=== PATIENT | male | born 1975 | race Caucasian/White ===

== ENCOUNTER → 2023-09-09 06:25 | Day surgery (SDC) | payer OTHER, SELFPAY ==
[2023-09-09 07:24] LABS: Glucose - Point of Care 103 mg/dl (70-99)
== END ==
LOC: GI 06:25
PROVIDERS: ATTENDING PHYSICIAN Surgery
DX: Z12.11 Encounter for screening for malignant neoplasm of colon (principal); C18.7 Malignant neoplasm of sigmoid colon; K62.1 Rectal polyp; D12.3 Benign neoplasm of transverse colon; D12.4 Benign neoplasm of descending colon; D12.5 Benign neoplasm of sigmoid colon; D12.7 Benign neoplasm of rectosigmoid junction; R19.5 Other fecal abnormalities
CPT/HCPCS: 45385; 88305; 82962; 88342

== ENCOUNTER 2024-09-22 06:25 | Day surgery (SDC) | payer OTHER, SELFPAY ==
[2024-09-22 09:31] LABS: Glucose - Point of Care 101 mg/dl (70-99)
== END 2024-09-22 11:52 | disposition home or self-care (01) ==
LOC: GI 06:25
PROVIDERS: ATTENDING PHYSICIAN Surgery
DX: Z12.11 Encounter for screening for malignant neoplasm of colon (principal); D12.3 Benign neoplasm of transverse colon; D12.4 Benign neoplasm of descending colon; D12.5 Benign neoplasm of sigmoid colon; K63.5 Polyp of colon; K62.1 Rectal polyp; Z86.0100 Personal history of colon polyps, unspecified
CPT/HCPCS: 45385; 45380; 88305; 82962

== ENCOUNTER 2025-03-05 09:30 | Emergency (ER) | payer OTHER, SELFPAY ==
[2025-03-05 09:33] VITALS: BP 156/97
[2025-03-05 09:41] LABS: Glucose - Point of Care 96 mg/dl (70-99)
[2025-03-05 10:18] VITALS: BP 126/83
[2025-03-05] MEDS: NSS 500 IV (10:38)
[2025-03-05 10:47] LABS: Hematocrit 42.4 % (39.0-52.0); Hemoglobin 14.1 g/dL (13.0-18.0); Mean Corp Hgb Conc. 33.3 g/dL (33.0-37.0); Mean Corpuscular Volume 81.9 fL (80.0-94.0); Nucleated Red Blood Cells % 0 % (-); Platelet Count 226 10^3/uL (130-400); Red Cell Dist. Width 14.5 % (11.5-14.5)
[2025-03-05 11:00] VITALS: BP 127/81
[2025-03-05 11:02] LABS: Blood Urea Nitrogen 19 mg/dl (9-20); Calcium 9.5 mg/dl (8.4-10.2); Carbon Dioxide 24 mmol/L (22-30); Chloride 104 mmol/L (98-107); Glucose 87 mg/dl (70-99); Potassium 4.7 mmol/L (3.5-5.1); Sodium 137 mmol/L (135-145); eGFR > 60.00
--- NOTE | 2025-03-05 11:04 | ED.GENMED ---
History of Present Illness
General
Chief Complaint: Visual Problem
Source: patient
Exam Limitations: none
Time Seen by Provider: 03/05/25 10:18
History of Present Illness
History of Present Illness:
Patient started Ozempic injections 3 weeks ago. He takes them on Saturdays. He has had a few days of some dizziness and balance off. Some funny visual changes with lines in both eyes. No double vision no blurry vision. No unusual headaches no
other neurologic symptoms. He did see the physician last week for some left eye issues but this was localized to the left eye and resolved.
Past History
Past History
ED Past Medical History: GERD, HTN, NIDDM and Other ('Gallbladder attack', anxiety disorder)
ED Past Surgical History: None
Social History
Tobacco: Former smoker
Alcohol: Occasional
Drug: None
Personal:
Living: with family
Employment: Employed
Family History
Family History: Other (Noncontributory)
Review of Systems
Review of Systems
All Other Systems: Not applicable
Constitutional: Denies fever
Neurological: Denies headache, weakness or numbness
Phy Exam
Physical Exam
Physical Exam:
GENERAL: Alert and oriented in no apparent distress
EYE: Orbits normal. Extraocular muscles intact. Discharge
NECK: Supple, no carotid bruit
ENT: Pharynx without erythema
CARDIAC: Regular rate and rhythm without any obvious murmurs.
LUNGS: Clear breath sounds,normal
ABDOMEN: Soft, without focal tenderness or distention
NEUROLOGICAL: Alert and oriented , cranial nerves II through XII intact. Speech normal. Fryljg-wp-rnns normal. Gbhn-xv-hlfr normal.
SKIN: Warm and dry, no rash or lesion, no discoloration, skin intact.
MUSCULOSKELETAL: No edema,no deformity.Good color
PSYCH: Normal and appropriate interaction.
Course
Orders/Labs/Results
Orders:
Orders
03/05/25 10:31
CT Head W/o Iv Contrast Urgent
Comment:
Reason For Exam: Dizzy.blurry vision
IV Insert/Care/Rem.- Treatment PRN
0.9% Sodium Chloride 500 ml [Nss] 500 ml IV BOLUS
03/05/25 10:32
CT Neck Angio W/wo Iv Contrast Urgent
Comment:
Reason For Exam: dizzy/visual problem
03/05/25 10:36
Basic Metabolic Panel Urgent
Complete Blood Count/With Diff Urgent
Erythrocyte Sed Rate Urgent
Abnormal Lab Results
03/05/25
10:36
Absolute Monos (auto) 0.7 H 10^3/uL
(0.1-0.6)
Monocytes % 9.7 H %
(1.7-9.3)
03/05/25 10:36
03/05/25 10:36
Vital Signs
Initial and Last Documented VS:
Initial Vital Signs
Temp Pulse Resp BP Pulse Ox
97.7 F 79 20 156/97 98
03/05/25 09:33 03/05/25 09:33 03/05/25 09:33 03/05/25 09:33 03/05/25 09:33
Last Documented Vital Signs
Temp Pulse Resp BP Pulse Ox
97.7 F 72 20 131/86 98
03/05/25 09:33 03/05/25 13:00 03/05/25 13:00 03/05/25 13:00 03/05/25 13:00
MDM/Problems Addressed
Differential Diagnosis Includes:
Low suspicion for an acute neurologic issue. Will get a plain head CT and check his carotids for completeness. Chronologically this may be his Ozempic as the symptoms all started within the last 3 weeks which is when he started his Ozempic.
*Radiology
Radiology exam reviewed: radiology read reviewed (Negative head CT. Negative CT angio)
*Pulse Oximetry
SaO2: 98
Oxygen Mode of Delivery: Room air
Patient hypoxic: no
*Corrections Identification Technician Interpretation
Rate: normal
Interpretation: normal
Heart Rate: 77
Rhythm: sinus and PVC's
*Critical Care Note
Total Time (30-74mins, 75-104mins- exclusive of procedures): Not Applicable
Update Note
Update Note:
I suspect this is all secondary to his medication. I cannot find another serious etiology. Discharged to follow-up
ED Attending Note
-
Portions of this chart may have been created with voice recognition software.� Occasional wrong word or��sound alike� substitutions may have occurred due to the inherent limitations of voice recognition software.
Discharge Plan
Departure
Patient Disposition: Home (Routine Discharge)
Date of Disposition: 03/05/25
Time of Disposition: 13:47
Patient with high blood pressure during this ER visit?: Yes
Discharge Problem:
Dizziness/blurry vision
Instructions: Dizziness in adults - ED (DC), BLOOD PRESSURE
Prescriptions:
No Action
ibuprofen 800 MG tablet
800 mg PO Q8HPRN PRN (Reason: pain) Qty: 30 0RF
alprazolam 0.25 MG tablet
0.25 mg PO BID PRN (Reason: anxiety)
metaxalone [Skelaxin] 800 MG tablet
800 mg PO HSPRN PRN (Reason: pain)
omeprazole 20 MG tablet,delayed release (DR/EC)
20 mg PO MEALS HS
diphenhydramine HCl [Banophen] 25 MG capsule
25 mg PO .Q4-6HPRN PRN (Reason: itching) Qty: 20 0RF
cyclobenzaprine 10 MG tablet
10 mg PO TIDPRN PRN (Reason: spasm) Qty: 9 0RF
ondansetron 4 MG tablet,disintegrating
4 mg PO TIDPRN PRN (Reason: nausea/vomiting) Qty: 12 0RF
Referrals:
Hair Jay MD [Family Provider, Family Practice] - Follow up in 2-3 days
Stand Alone Forms: Return to Work
Activity Restrictions/Additional Instructions:
I suspect this is your medication causing these issues. I would stop the medication for now
Follow-up closely with your primary physician. Also for completeness to have your vision checked by the eye doctor
Return with increased visual issues increased dizziness headaches vomiting, or any other neurologic symptoms
Interventions
Interventions:
*Risk Screen - Suicide Last Done: 03/05/25 09:33
*General Assessment Last Done: 03/05/25 09:33
*Neglect/Abuse Screening Last Done: 03/05/25 09:33
*ED- Fall Risk Assessment Last Done: 03/05/25 10:12
*ED COVID-19 Vaccine History Last Done: 03/05/25 10:12
ED- Neurological Assessment Last Done: 03/05/25 10:28
ED-EENT Assessment Last Done: 03/05/25 10:30
Discharge Date and Time
Print Language: PERSIAN
[2025-03-05 12:20] VITALS: BP 110/64
[2025-03-05 13:00] VITALS: BP 131/86
== END 2025-03-05 14:16 | disposition home or self-care (01) ==
LOC: EMR 09:30
PROVIDERS: EMERGENCY PHYSICIAN Emergency Medicine; FAMILY PHYSICIAN Family Medicine
DX: R42 Dizziness and giddiness (principal); H53.8 Other visual disturbances; E11.9 Type 2 diabetes mellitus without complications; I10 Essential (primary) hypertension; Z87.891 Personal history of nicotine dependence
CPT/HCPCS: 99284; 70450; 70498; 80048; 82962; 85025; 85652; Q9967

== ENCOUNTER 2025-03-12 17:18 | Emergency (ER) | payer OTHER, SELFPAY ==
[2025-03-12 17:18] VITALS: BMI 40.9
[2025-03-12 17:29] VITALS: BP 138/95
[2025-03-12 17:42] LABS: Hematocrit 41.1 % (39.0-52.0); Hemoglobin 13.5 g/dL (13.0-18.0); Mean Corp Hgb Conc. 32.8 g/dL (33.0-37.0); Mean Corpuscular Volume 82.5 fL (80.0-94.0); Nucleated Red Blood Cells % 0 % (-); Platelet Count 218 10^3/uL (130-400); Red Cell Dist. Width 14.6 % (11.5-14.5)
[2025-03-12 17:58] LABS: ALT (SGPT) 38 U/L (0-50); AST (SGOT) 28 U/L (17-59); Albumin 4.8 g/dl (3.5-5.0); Alkaline Phosphatase 70 U/L (38-126); Blood Urea Nitrogen 18 mg/dl (9-20); Calcium 9.3 mg/dl (8.4-10.2); Carbon Dioxide 30 mmol/L (22-30); Chloride 104 mmol/L (98-107); Glucose 92 mg/dl (70-99); Potassium 4.5 mmol/L (3.5-5.1); Sodium 140 mmol/L (135-145); Total Protein 7.5 g/dl (6.3-8.2); eGFR > 60.00
[2025-03-12 18:09] LABS: Troponin I < 0.012 ng/ml
[2025-03-12 20:14] VITALS: BP 149/97; BP 166/115; BP 181/113; PULSE 72; PULSE 73; PULSE 84
--- NOTE | 2025-03-12 20:15 | ED.GENMED ---
History of Present Illness
General
Chief Complaint: Dizziness
Source: patient
Time Seen by Provider: 03/12/25 19:57
History of Present Illness
History of Present Illness:
This patient is a 49-year-old male who states that he started Ozempic and took it a total of 2-3 times, injected once a week. He has not had it in 2 weeks. He is concerned that his symptoms are related to Ozempic. He repeatedly speculates that
his symptoms are also related to anxiety. He states that for the last 2 to 3 weeks he has been feeling episodes of 'foggy' in his brain and off balance. He denies a sensation of spinning or leaning to one side, dizziness. He was seen by his
primary care doctor and diagnosed with vertigo and given an antihistamine which is just making him sleep. He was also seen in the emergency department and had an extensive work including a Noncon head CT and a CTA of the head and neck which was
unremarkable. He states that he was at work tonight and started to feel overwhelmed with a 'shaky feeling'. He says he started to feel like he was panicking, and 911 was called. He says that he now feels a little shaky and anxious but otherwise
denies complaints. He denies recent dyspnea, numbness, tingling, focal weakness, double vision, change in vision, change in speech, trouble swallowing, abdominal pain, nausea, vomiting, fever, chills. He momentarily had discomfort in the left
upper anterior chest, now fully resolved. He says it was 'nothing in my heart', and lasted a minute or 2 before fully resolving.
Past History
Past History
ED Past Medical History: GERD, HTN, NIDDM and Other ('Gallbladder attack', anxiety disorder, RAMIN, obesity)
ED Past Surgical History: None
Social History
Tobacco: Former smoker
Alcohol: Occasional
Drug: None
Personal:
Living: with family
Employment: Employed
Family History
Family History: Other (Noncontributory)
Phy Exam
Physical Exam
Physical Exam:
GENERAL: Alert , in no apparent distress
EYE: pupils equal and reactive
NECK: Supple, no significant adenopathy.
ENT: o/p clr, mmm.
CARDIAC: Regular rate and rhythm .
LUNGS: Clear breath sounds bilaterally, no acute respiratory distress, no wheezes/rales/rhonchi
ABDOMEN: Soft, without focal tenderness, no r/g, no cvat
NEUROLOGICAL: Alert and oriented, no focal neuro deficits
SKIN: Warm and dry, skin intact.
MUSCULOSKELETAL: No edema, well perfused.
PSYCH: Normal and appropriate interaction.
Course
Orders/Labs/Results
Orders:
Orders
03/12/25 17:31
ECG [Electrocardiogram (*1)] Urgent
Reason for Study: Chest Pain
EKG- Treatment ONCE
03/12/25 17:34
Complete Blood Count/With Diff Urgent
Comprehensive Metabolic Panel Urgent
Troponin I Urgent
03/12/25 20:14
Cardiac Monitoring- Treatment ONCE
Orthostatic VS- Treatment ONCE
0.9% Sodium Chloride 1000 ml [Nss] 1,000 ml IV BOLUS
03/12/25 20:31
Troponin I Urgent
Abnormal Lab Results
03/12/25
17:34
MCHC 32.8 L g/dL
(33.0-37.0)
RDW 14.6 H %
(11.5-14.5)
Absolute Monos (auto) 0.9 H 10^3/uL
(0.1-0.6)
Monocytes % 10.7 H %
(1.7-9.3)
03/12/25 17:34
03/12/25 17:34
Vital Signs
Initial and Last Documented VS:
Initial Vital Signs
Temp Pulse Resp BP Pulse Ox
98.4 F 86 18 138/95 95
03/12/25 17:29 03/12/25 17:29 03/12/25 17:29 03/12/25 17:29 03/12/25 17:29
Last Documented Vital Signs
Temp Pulse Resp BP Pulse Ox
98.4 F 86 18 138/95 95
03/12/25 17:29 03/12/25 17:29 03/12/25 20:22 03/12/25 17:29 03/12/25 20:18
*Pulse Oximetry
SaO2: 95
Oxygen Mode of Delivery: Room air
Update Note
Update Note:
Patient presents to the Emergency Department with ____feeling 'shaky'
Number and Complexity of Problems Addressed at the Encounter
� Chronic conditions affecting care:
� Acute Exacerbation and/or Progression of Chronic Illness:
� Differential Diagnosis includes: But not limited to dehydration, electrolyte disorder, ACS, vertigo, etc. etc. etc.
Amount and/or Complexity of Data to be Reviewed and Analyzed
� I performed an independent evaluation of and my interpretation is:
EKG: Read by me, normal sinus rhythm, LAD, PVCs, no acute ischemia
CT:
Xrays:
Laboratory Studies: Generally unremarkable
Other:
� Review of other/old records reveals: Patient had a Noncon CT and CTA within the last few weeks unremarkable
� Clinical information was obtained by an independent historian: who is bedside
� Prescriptions/Medications Considered but not given:
� Further testing considered but not performed:
Risk of Complications and/or Morbidity or Mortality of Patient Management
� Social determinants of health affecting care:
� Discussion with other providers (PCP, Hospitalists, Consultants, etc):
� Escalation of care including admission/observation vs risk of discharge considered: Patient remains well-appearing and comfortable here, no complaints at this time. Long discussion with patient regarding importance of
follow-up and reasons return to the ER. I do not clinically suspect posterior circulation event given lack of physical findings and history that is not suggestive of. Patient is asymptomatic at this time.
ED Attending Note
-
Portions of this chart may have been created with voice recognition software.� Occasional wrong word or��sound alike� substitutions may have occurred due to the inherent limitations of voice recognition software.
Discharge Plan
Departure
Patient Disposition: Home (Routine Discharge)
Date of Disposition: 03/12/25
Time of Disposition: 22:08
Patient with high blood pressure during this ER visit?: Yes
Condition: Good
Discharge Problem:
Dizziness
Instructions: Dizziness, BLOOD PRESSURE
Prescriptions:
No Action
ibuprofen 800 MG tablet
800 mg PO Q8HPRN PRN (Reason: pain) Qty: 30 0RF
alprazolam 0.25 MG tablet
0.25 mg PO BID PRN (Reason: anxiety)
metaxalone [Skelaxin] 800 MG tablet
800 mg PO HSPRN PRN (Reason: pain)
omeprazole 20 MG tablet,delayed release (DR/EC)
20 mg PO MEALS HS
diphenhydramine HCl [Banophen] 25 MG capsule
25 mg PO .Q4-6HPRN PRN (Reason: itching) Qty: 20 0RF
cyclobenzaprine 10 MG tablet
10 mg PO TIDPRN PRN (Reason: spasm) Qty: 9 0RF
ondansetron 4 MG tablet,disintegrating
4 mg PO TIDPRN PRN (Reason: nausea/vomiting) Qty: 12 0RF
Referrals:
Hair Jay MD [Family Provider, Family Practice] - Follow up in 2-3 days
Stand Alone Forms: Return to Work
Activity Restrictions/Additional Instructions:
IF YOU DEVELOP A SENSE OF SPINNING, SEVERE HEADACHE, NECK PAIN, NAUSEA, VOMITING, NUMBNESS, CHANGE IN SPEECH, CHANGE IN VISION, DOUBLE VISION, PASS OUT, CHEST PAIN, SHORTNESS OF BREATH, GET WORSE, OR OTHER WORRISOME SIGNS, PLEASE RETURN TO THE ER
IMMEDIATELY
Interventions
Interventions:
*Risk Screen - Suicide Last Done: 03/12/25 17:29
*General Assessment Last Done: 03/12/25 17:29
Discharge Date and Time
Print Language: BOLIVIAN
[2025-03-12] MEDS: NSS 1000 IV (20:32)
[2025-03-12 21:00] VITALS: BP 155/69
[2025-03-12 21:09] LABS: Troponin I < 0.012 ng/ml
[2025-03-12 22:00] VITALS: BP 119/63
== END 2025-03-12 22:27 | disposition home or self-care (01) ==
LOC: EMR 17:18
PROVIDERS: Emergency Medicine; EMERGENCY PHYSICIAN Emergency Medicine; FAMILY PHYSICIAN Family Medicine
DX: R42 Dizziness and giddiness (principal); I10 Essential (primary) hypertension; F41.9 Anxiety disorder, unspecified; Z87.891 Personal history of nicotine dependence; Z79.85 Long-term (current) use of injectable non-insulin antidiabetic drugs; E11.9 Type 2 diabetes mellitus without complications
CPT/HCPCS: 99284; 80053; 84484; 85025; 93005

== ENCOUNTER 2025-07-04 17:49 | Emergency (ER) | payer OTHER, SELFPAY ==
[2025-07-04 17:56] VITALS: BP 161/101
[2025-07-04 18:19] LABS: Hematocrit 40.8 % (39.0-52.0); Hemoglobin 13.4 g/dL (13.0-18.0); Mean Corp Hgb Conc. 32.8 g/dL (33.0-37.0); Mean Corpuscular Volume 82.6 fL (80.0-94.0); Nucleated Red Blood Cells % 0 % (-); Platelet Count 238 10^3/uL (130-400); Red Cell Dist. Width 14.7 % (11.5-14.5)
[2025-07-04 18:37] LABS: ALT (SGPT) 24 U/L (0-50); AST (SGOT) 23 U/L (17-59); Albumin 4.3 g/dl (3.5-5.0); Alkaline Phosphatase 63 U/L (38-126); Blood Urea Nitrogen 19 mg/dl (9-20); Calcium 9.4 mg/dl (8.4-10.2); Carbon Dioxide 29 mmol/L (22-30); Chloride 103 mmol/L (98-107); Glucose 121 mg/dl (70-99); Potassium 4.2 mmol/L (3.5-5.1); Sodium 137 mmol/L (135-145); Total Protein 7.2 g/dl (6.3-8.2); eGFR > 60.00
[2025-07-04 18:46] LABS: Troponin I < 0.012 ng/ml
[2025-07-04 22:02] VITALS: BP 129/100
[2025-07-04 22:34] VITALS: BMI 39.8
[2025-07-04 23:00] VITALS: BP 131/80
[2025-07-04 23:22] LABS: Troponin I < 0.012 ng/ml
--- NOTE | 2025-07-04 23:56 | ED.GENMED ---
History of Present Illness
General
Chief Complaint: Chest Pain
Source: patient
Exam Limitations: none
Time Seen by Provider: 07/04/25 22:21
Nursing documentation reviewed up to this point in time: agreed with
History of Present Illness
History of Present Illness:
Note:
CHIEF COMPLAINT(S)
Warm sensation across the chest.
HISTORY OF PRESENT ILLNESS
The patient is a 49-year-old male who presents with a warm sensation across the chest. This sensation began in the middle of last week. The patient did not report any associated cardiac history or past similar episodes of chest pain. The patient
works for the [employer] and performs strenuous activities regularly but did not specify a particular event that triggered the symptoms. The patient mentions recently having a reaction to Semaglutide, which he attributes to gastrointestinal issues.
He has a history of anxiety, with a recent dosage increase in Sertraline from 50 mg to 100 mg. He reports weight loss of about 10 pounds due to dietary changes but denies any shortness of breath, recent fever, chills, or vomiting. The patient has no
history of smoking, alcohol, or drug use.
PAST MEDICAL AND SURGICAL HISTORY
Anxiety, currently treated with medication.
CHRONIC MEDICAL CONDITIONS SIGNIFICANTLY AFFECTING CARE
Anxiety, managed with Sertraline.
SOCIAL HISTORY
The patient denies use of tobacco, alcohol, or illicit drugs.
MEDICATIONS
Sertraline 100 mg (recent increase from 50 mg).
PHYSICAL EXAM
General: Alert, no acute distress.
Skin: Warm, dry.
Head: Normocephalic, atraumatic.
Neck: Supple, trachea midline.
Eye Ears, nose, mouth and throat: Oral mucosa moist.
Cardiovascular: Normal peripheral perfusion, No edema.
Respiratory: Respirations are non-labored.
Gastrointestinal: Abdomen nondistended.
Back: Normal range of motion, Normal alignment.
Musculoskeletal: Normal ROM, normal strength.
Neurological: Alert and oriented to person, place, time, and situation, No focal neurological deficit observed.
Psychiatric: Cooperative, appropriate mood & affect.
PLAN
The plan includes checking labs and reviewing recent blood work. An x-ray will be assessed if not already seen. The patient will be referred to a senior nurse manager for further evaluation, potentially including a treadmill test or other cardiac
assessments. The senior nurse manager will follow up, likely after the holidays.
DIFFERENTIAL DIAGNOSIS
The Differential Diagnosis includes, in no particular order and is not limited to:
1. Anxiety-induced symptoms
2. Gastroesophageal reflux disease
3. Cardiac arrhythmias
4. Costochondritis
5. Panic disorder
6. Angina
7. Myocardial infarction
8. Peptic ulcer disease
9. Muscle strain
10. Atypical chest pain
Disposition:
SUMMARY OF ENCOUNTER
The patient is a 49-year-old male presenting with intermittent chest pain over the last few days. Upon evaluation in the emergency department, it was noted that the patient had two negative troponin tests. He was placed in the chest pain follow-up
protocol, and laboratory results indicated elevated TSH levels consistent with hypothyroidism.
DISPOSITION
Discharge
ASSESSMENT
The patient presents with intermittent chest pain, elevated TSH indicating potential hypothyroidism, and a current protocol plan for chest pain follow-up.
PLAN
The patient is to follow up with his primary care provider to address the elevated TSH and any potential management of hypothyroidism.
INDEPENDENT REVIEW OF LABS AND INTERPRETATION OF TESTS
My independent review of the patients labs indicates two negative troponin test results. Additionally, my review identifies TSH levels elevated consistent with hypothyroidism.
MEDICATION RECONCILIATION
Sertraline 100 mg (recent increase from 50 mg).
MEDICAL DECISION MAKING
-Complexity of Data Reviewed: Chronic conditions affecting care include anxiety managed with Sertraline. Differential diagnoses include anxiety-induced symptoms, gastroesophageal reflux disease, cardiac arrhythmias, costochondritis, panic disorder,
angina, myocardial infarction, peptic ulcer disease, muscle strain, and atypical chest pain.
-Data:
Category 1
My independent review of lab tests includes two negative troponin results and an elevated TSH consistent with hypothyroidism.
Category 3
Discussion of management includes the patients enrollment in the chest pain follow-up protocol.
-Risk: Prescription drug management with Sertraline is in place and will continue.
Considering the patients stable condition, negative troponin results, and enrollment in the chest pain protocol, outpatient management with a primary care follow-up is appropriate for addressing the elevated TSH and potential hypothyroidism.
DIAGNOSIS
1. Intermittent chest pain (R07.9)
2. Elevated TSH, consistent with hypothyroidism (E03.9)
Past History
Past History
ED Past Medical History: GERD, HTN, NIDDM and Other ('Gallbladder attack', anxiety disorder, RAMIN, obesity)
ED Past Surgical History: None
Social History
Tobacco: Former smoker
Alcohol: Occasional
Drug: None
Personal:
Living: with family
Employment: Employed
Family History
Family History: Other (Noncontributory)
Phy Exam
Physical Exam
Physical Exam:
.
Scores
Heart Score for Chest Pain Patients
STEMI patient?: No
History: Slightly or Non-Suspicious
ECG: Normal
Age: >45 - <65 years
Risk Factors: 1 or 2 Risk Factors
Troponin: </= Normal Limit
Heart Score for Chest Pain Patients: 2
Heart Score Risk: 2.5% MACE over next 6 weeks
Course
Orders/Labs/Results
Orders:
Orders
07/04/25 17:55
EKG [Electrocardiogram (*1)] Urgent
Reason for Study: Chest Pain
EKG- Treatment ONCE
07/04/25 18:14
CMP [Comprehensive Metabolic Panel] Urgent
Complete Blood Count/With Diff Urgent
Troponin I Urgent
07/04/25 22:08
CXR2 [CR Chest - 2 Views ] Urgent
Comment:
Reason For Exam: chest pain
07/04/25 22:42
Electrocardiogram (*1) Urgent
Reason for Study: Chest Pain
EKG- Treatment ONCE
07/04/25 22:47
Free T4 Urgent
TSH Reflex To Free T4 Urgent
Troponin I Urgent
Abnormal Lab Results
07/04/25 07/04/25
18:14 22:47
MCHC 32.8 L g/dL
(33.0-37.0)
RDW 14.7 H %
(11.5-14.5)
Glucose 121 H mg/dl
(70-99)
TSH (Reflex) 15.20 H uIU/ml
(0.47-4.68)
07/04/25 18:14
07/04/25 18:14
Vital Signs
Initial and Last Documented VS:
Initial Vital Signs
Temp Pulse Resp BP Pulse Ox
98.1 F 51 20 161/101 96
07/04/25 17:56 07/04/25 17:56 07/04/25 17:56 07/04/25 17:56 07/04/25 17:56
Last Documented Vital Signs
Temp Pulse Resp BP Pulse Ox
98.1 F 67 21 131/80 96
07/04/25 17:56 07/04/25 23:15 07/04/25 23:15 07/04/25 23:00 07/04/25 23:15
*Radiology
Radiology exam reviewed: all reviewed NAD by ED Provider
*Pulse Oximetry
SaO2: 96
Oxygen Mode of Delivery: Room air
Patient hypoxic: no
*Critical Care Note
Total Time (30-74mins, 75-104mins- exclusive of procedures): Not Applicable
ED Attending Note
-
Portions of this chart may have been created with voice recognition software.� Occasional wrong word or��sound alike� substitutions may have occurred due to the inherent limitations of voice recognition software.
Discharge Plan
Departure
Patient Disposition: Home (Routine Discharge)
Date of Disposition: 07/04/25
Time of Disposition: 23:56
Patient with high blood pressure during this ER visit?: Yes
Condition: Good
Discharge Problem:
Chest pain, Elevated TSH
Instructions: Thyroid-stimulating hormone test, Chest Pain CBC Follow Up, BLOOD PRESSURE
Prescriptions:
No Action
ibuprofen 800 MG tablet
800 mg PO Q8HPRN PRN (Reason: pain) Qty: 30 0RF
alprazolam 0.25 MG tablet
0.25 mg PO BID PRN (Reason: anxiety)
metaxalone [Skelaxin] 800 MG tablet
800 mg PO HSPRN PRN (Reason: pain)
omeprazole 20 MG tablet,delayed release (DR/EC)
20 mg PO MEALS HS
diphenhydramine HCl [Banophen] 25 MG capsule
25 mg PO .Q4-6HPRN PRN (Reason: itching) Qty: 20 0RF
cyclobenzaprine 10 MG tablet
10 mg PO TIDPRN PRN (Reason: spasm) Qty: 9 0RF
ondansetron 4 MG tablet,disintegrating
4 mg PO TIDPRN PRN (Reason: nausea/vomiting) Qty: 12 0RF
Referrals:
[facility] [Provider Group]
Hair Jay MD [Family Provider, Family Practice]
Stand Alone Forms: Return to Work
Activity Restrictions/Additional Instructions:
Thank You for choosing [facility].
It was a pleasure meeting you and taking part in your care. We hope for your continued healing and wellness.
Please read discharge instructions in their entirety. However, they are for general education and may not describe your exact diagnosis at discharge. Information on your ER visit and medical conditions were discussed with you along with appropriate
follow up information...
If indicated, please take your medications as instructed and indicated on discharge paperwork.
Please schedule a follow up appointment as directed. Call to schedule an appointment
Please return to the emergency department with ANY change in, persisting, or worsening of symptoms. If any of your symptoms do not improve, or persist, or become more severe within 6-12 hours, please return to the emergency department for further
care.
Please return to the emergency department if you develop a headache, neck pain/stiffness, fever greater than 100.4F, chest pain, shortness of breath, persistent nausea, vomiting, slurred speech, difficulty walking, numbness/tingling, weakness, signs
of infection or any other symptoms that are worrisome to you.
If you have any questions or concerns please do not hesitate to call the Hospital at .
Interventions
Interventions:
*General Assessment Last Done: 07/04/25 22:34
*Neglect/Abuse Screening Last Done: 07/04/25 17:56
*ED COVID-19 Vaccine History Last Done: 07/04/25 22:34
*ED Influenza Vaccine History Last Done: 07/04/25 22:34
[facility] Fall Risk Assessment Tool Last Done: 07/04/25 22:34
*Risk Screen - Suicide (C-SSRS) Last Done: 07/04/25 17:56
ED- Cardiac Assessment Last Done: 07/04/25 22:34
Discharge Date and Time
Print Language: GUAMANIAN
== END 2025-07-05 00:13 | disposition home or self-care (01) ==
LOC: EMR 17:49
PROVIDERS: Emergency Medicine; EMERGENCY PHYSICIAN Student in an Organized Health Care Education/Training Program; FAMILY PHYSICIAN Family Medicine
DX: R07.9 Chest pain, unspecified (principal); R94.6 Abnormal results of thyroid function studies; E11.9 Type 2 diabetes mellitus without complications; I10 Essential (primary) hypertension; G47.33 Obstructive sleep apnea (adult) (pediatric); K21.9 Gastro-esophageal reflux disease without esophagitis; E66.9 Obesity, unspecified; Z68.39 Body mass index [BMI] 39.0-39.9, adult; F41.9 Anxiety disorder, unspecified; Z87.891 Personal history of nicotine dependence
CPT/HCPCS: 99284; 71046; 80053; 84439; 84443; 84484; 85025; 93005